=== PATIENT | male | born 1960 | race Caucasian/White ===

== ENCOUNTER → 2016-07-24 | Day surgery (SDC) | payer OTHER ==
[2016-07-10 10:04] VITALS: BMI 29.0
[~2016-07-24] VITALS: Ht 190.5 cm; Wt 106.8 kg
[~2016-07-24] MED LIST: ADVIN50/60 INH; ALBU0.08 INH; ALBUAER19 INH; ALBUTEROL HFA INHALER 8.5 GM INH ONE; BUPR200T2 PO; CARB200T3 PO; FINA5TAB PO; HYDR-5688 PO; LIDOCAINE HCL 2% 2 ML VIAL (20MG/ML) ONE; LISI-461 PO; METF850T PO; MIDAZOLAM HCL 1 MG/ML 2ML VIAL ONE; PROPOFOL IV EMULSION 10 MG/ML 20 ML VIAL IV ONE; SITA100T3 PO; ZLF50 PO
[2016-07-24 14:35] VITALS: Ht 190.5 cm; Wt 106.8 kg
[2016-07-24 14:43] VITALS: TEMP 36.7
--- NOTE | 2016-07-24 15:28 | Endo History and Physical ---
History & Physical Date of Service: Jul 24, 2016. Chief Complaint: dysphagia with possible dilation Referring Physician: dr. londono History of Present Illness For EGD Past Medical History Diabetes, Fractures, Asthma, Male Genitourinary Prob., Reflux, Sleep Apnea, Depression Past Surgical History Hx Cardiac Surgery: No Hx Internal Defibrillator: No Hx Pacemaker: No Hx Abdominal Surgery: Yes (MEHRDAD, DOUBLE HERNIA REPAIR) Hx of Implantable Prosthesis: No Hx Post-Op Nausea and Vomiting: No Hx Cancer Surgery: No Hx Thoracic Surgery: No Hx Orthopedic: No Hx Urinary Tract Surgery: No Family History None Social History Smoking Status: Current Every Day Smoker Hx Substance Use: Yes (SEE MED LIST) Hx Alcohol Use: Yes (1-2 BEERS/MONTH) Allergies Coded Allergies: NO KNOWN DRUG ALLERGIES (Verified Allergy, Unknown, ., 07/24/16) Shellfish (Verified Allergy, Unknown, UNKNOWN, 07/24/16) Current Medications Reported Home Medications Medications Dose Route/Sig Max Daily Dose Days Date Category Dose Instructions Proscar (Finasteride) 5 Mg Tab 5 Mg PO QAM 11/28/15 Reported Proventil 0.083% 2.5MG/3ML (Albuterol Sulfate) Nebu 2.5 Mg INH QID PRN 11/28/15 Reported [place] 5MG/325MG (Acetaminophen/Hydrocodone Bitart) Tab 1-2 Tablet PO Q6H PRN 11/28/15 Reported PRN PAIN Januvia (Sitagliptin Phosphate) 100 Mg Tab 100 Mg PO QAM 11/28/15 Reported Advair Diskus 500/50 60 Dose (Fluticasone Prop/Salmeterol) 1 Ea Aerp 1 Puff INH BID 11/28/15 Reported Sertraline HCl 50 Mg Tab 50 Mg PO HS 03/11/15 Reported Lisinopril 10 Mg Tab 10 Mg PO QAM 03/11/15 Reported Ventolin Inhaler (Albuterol) Aers 2 Puffs INH QID PRN 08/23/14 Reported Tegretol (Carbamazepine) 200 Mg Tab 200 Mg PO QAM 08/23/14 Reported Glucophage (Metformin Hcl) 850 Mg Tab 1 Tabs PO BID 08/23/14 Reported Wellbutrin Sr (Bupropion Hcl) 200 Mg Tab 200 Mg PO QAM 08/23/14 Reported Vital Signs Weight (Kilograms): 106.82 Height (Feet): 6 Height (Inches): 3 Date Time Temp Pulse Resp B/P Pulse Ox O2 Delivery O2 Flow Rate FiO2 07/24/16 14:43 36.7 80 16 151/90 96 Room Air Physical Exam General Appearance: WD/WN Respiratory/Chest: Respiratory effort: no dyspnea Cardiovascular: Heart Auscultation: RRR Abdomen: Inspection & Palpation: soft (Dysphagia for EGD)
--- NOTE | 2016-07-24 15:41 | Discharge Instructions ---
Endoscopy Patient Instructions Date / Procedure(s) Performed Jul 24, 2016. EGD Allergy Information Coded Allergies: NO KNOWN DRUG ALLERGIES (Verified Allergy, Unknown, ., 07/24/16) Shellfish (Verified Allergy, Unknown, UNKNOWN, 07/24/16) Discharge Date / Findings Jul 24, 2016. Esophagitis with stricture Medication Instructions Stopped Medication(s): metformin Restart Stopped Medication(s): resume meds Begin Prilosec 20 mg a day Provider Instructions Activity Restrictions - No exercising or heavy lifting for 24 hours. - Do not drink alcohol the day of the procedure. - Do not drive a car or operate machinery until the day after the procedure. - Do not make any important decisions or sign important papers in 24 hours after the procedure. Following Day: - Return to full activity which may include returning to work/school. Diet Start your diet with liquids and light foods (jello, soup, juice, toast). Then eat your usual diet if not nauseated. Treatment For Common After Affects For mild abdominal pain, bloating, or excessive gas: - Rest - Eat lightly - Lie on right side Follow-Up Information Follow-up with dr. londono as scheduled Anesthesia Information What You Should Know You have had a procedure that required some medicine to reduce anxiety and discomfort. This treatment is called moderate sedation. After receiving the treatment, you may be sleepy, but you will be able to breathe on your own. The effects of the treatment may last for several hours. Follow these instructions along with Activity/Diet recommendations noted above: * Do NOT do anything where dizziness or clumsiness would be dangerous. * Rest quietly at home today, then you can be up and about tomorrow. * Have a responsible person stay with you the rest of today. * You may have had an I.V. today. If so, you may take the dressing off later today. Recommendations Call your doctor if: * Trouble breathing * Continuous vomiting for more than 24 hours * Temperature above 101 degrees * Severe abdominal pain or bloating * Pain not relieved by pain medicine ordered * There is increased drainage or redness from any incision * A large amount of rectal bleeding greater than 2-3 tablespoons. (If you had a polyp/s removed or have hemorrhoids, a small amount of blood - from the rectum is to be expected.) * You have any unanswered questions or concerns. IN THE EVENT OF A SERIOUS EMERGENCY, GO TO THE NEAREST EMERGENCY ROOM Your discharge instructions were prepared by provider Bret Lindsey. Patient Instructions Signature Page Chris Pickering Patient (or Guardian) Signature/Date: I have read and understand the instructions given to me by my caregivers. Caregiver/RN/Doctor Signature/Date: The above-named patient and/or guardian has received patient instructions on this date. + Original Patient Signature Page (only) stays with chart. Please make copy for patient.
--- NOTE | 2016-07-24 15:46 | GI REPORT ---
Procedure Date: 07/24/2016 3:30 PM Procedure: Upper GI endoscopy Indications: Dysphagia Medicines: Midazolam 2 mg IV, Propofol total dose 200 mg IV, Lidocaine 100 mg IV Complications: No immediate complications. Estimated Blood Loss: Estimated blood loss was minimal. Procedure: Pre-Anesthesia Assessment: - Prior to the procedure, a History and Physical was performed, and patient medications, allergies and sensitivities were reviewed. The patient's tolerance of previous anesthesia was reviewed. - The risks and benefits of the procedure and the sedation options and risks were discussed with the patient. All questions were answered and informed consent was obtained. After obtaining informed consent, the endoscope was passed under direct vision. Throughout the procedure, the patient's blood pressure, pulse, and oxygen saturations were monitored continuously. The On-site loaner was introduced through the mouth, and advanced to the second part of duodenum. The upper GI endoscopy was accomplished without difficulty. The patient tolerated the procedure well. Findings: LA Grade C (one or more mucosal breaks continuous between tops of 2 or more mucosal folds, less than 75% circumference) esophagitis with no bleeding was found. One mild benign-appearing, intrinsic stenosis was found. And was traversed. A guidewire was placed and the scope was withdrawn. Dilation was performed with a Savary dilator with no resistance at 54 Fr. Estimated blood loss was minimal. The entire examined stomach was normal. The examined duodenum was normal. Impression: - LA Grade C reflux esophagitis. - Benign-appearing esophageal stenosis. Dilated. - Normal stomach. - Normal examined duodenum. - No specimens collected. Recommendation: - Discharge patient to home (ambulatory). - Use Prilosec (omeprazole) 20 mg PO daily indefinitely. - Return to primary care physician PRN. Bret Lindsey M.D. Bret Lindsey MD 07/24/2016 3:46:02 PM This report has been signed electronically. Note Initiated On: 07/24/2016 3:30 PM I attest to the content of the Intraoperative Record and orders documented therein, exceptions below
[2016-07-24 16:10] VITALS: BP 136/84; PULSE 72; O2SAT 93
--- NOTE | 2016-07-24 16:13 | Anesthesiology Progress Note ---
Anesthesia Post Op Note Date & Time Jul 24, 2016 at 16:13 Vital Signs Pain Intensity: 0 Vital Signs Past 12 Hours Date Time Temp Pulse Resp B/P Pulse Ox O2 Delivery O2 Flow Rate FiO2 07/24/16 16:10 72 18 136/84 93 Room Air 07/24/16 15:55 77 18 102/86 93 Room Air 07/24/16 15:45 77 18 119/79 92 Room Air 07/24/16 14:43 36.7 80 16 151/90 96 Room Air Notes Mental Status: alert / awake / arousable, participated in evaluation Pt Amnestic to Procedure: Yes Nausea / Vomiting: adequately controlled Pain: adequately controlled Airway Patency, RR, SpO2: stable & adequate BP & HR: stable & adequate Hydration State: stable & adequate Anesthetic Complications: no major complications apparent
== END | disposition home or self-care (01) ==
LOC: C.GI 14:20
PROVIDERS: ATTEND Internal Medicine Gastroenterology
DX: R13.10 Dysphagia, unspecified (principal); K22.2 Esophageal obstruction; E11.9 Type 2 diabetes mellitus without complications; K21.9 Gastro-esophageal reflux disease without esophagitis; F32.9 Major depressive disorder, single episode, unspecified; G47.30 Sleep apnea, unspecified; F17.200 Nicotine dependence, unspecified, uncomplicated; Z79.899 Other long term (current) drug therapy; K21.0 Gastro-esophageal reflux disease with esophagitis